=== PATIENT | female | born 1965 | race Caucasian/White ===

== ENCOUNTER 2016-10-24 13:49 | Emergency (ER) | payer OTHER ==
[2016-10-24 13:54] VITALS: RESP 17
[2016-10-24] MEDS ORDERED: ONDANSETRON 4 MG/2 ML VIAL ONE (14:33)
[2016-10-24 14:41] LABS: % IMMATURE GRANULYOCYTES 0.3 % (0.0-1.1); ABSOLUTE IMMATURE GRANULOCYTES 0.02 10^3/uL (0.00-0.10); ADD DIFF? NO; ADD MORPH? NO; ADD SCAN? NO; ATYPICAL LYMPHOCYTE FLAG 20 (0-99); FRAGMENT RBC FLAG 0 (0-99); HEMATOCRIT 41.4 % (38.0-47.0); HEMOGLOBIN 14.4 g/dL (12.6-16.3); LEFT SHIFT FLG 0 (0-99); LIPEMIA HEMOLYSIS FLAG 90 (0-99); MEAN CELL HEMOGLOBIN 30.6 pg (27.9-34.1); MEAN CELL HEMOGLOBIN CONCENTR. 34.8 g/dL (32.4-36.7); MEAN CELL VOLUME 87.9 fL (81.5-99.8); MEAN PLATELET VOLUME 10.5 fL (8.7-11.7); PLATELET CLUMPS FLAG 0 (0-99); PLATELET COUNT 270 10^3/uL (150-400); RED BLOOD CELL COUNT 4.71 10^6/uL (4.18-5.33); RED CELL DISTRIBUTION WIDTH 11.9 % (11.5-15.2)
[2016-10-24 14:48] LABS: ALANINE AMINOTRANSFERASE 43 IU/L (9-52); ALBUMIN 4.6 g/dL (3.5-5.0); ALKALINE PHOSPHATASE 66 IU/L (38-126); ANION GAP 10 mEq/L (8-16); ASPARTATE AMINOTRANSFERASE 26 IU/L (14-46); BILIRUBIN,TOTAL 0.6 mg/dL (0.1-1.4); BILIRUBIN-CONJUGATED 0.3 mg/dL (0.0-0.5); BILIRUBIN-UNCONJUGATED 0.3 mg/dL (0.0-1.1); CALCIUM 9.2 mg/dL (8.5-10.4); CARBON DIOXIDE 25 mEq/l (22-31); CHLORIDE 104 mEq/L (97-110); CREATININE 0.7 mg/dL (0.6-1.0); GLOMERULAR FILTRATION RATE > 60; GLUCOSE 104 mg/dL (70-100); POTASSIUM 3.6 mEq/L (3.5-5.2); SODIUM 139 mEq/L (134-144); TOTAL PROTEIN 7.1 g/dL (6.3-8.2)
[2016-10-24] MEDS ORDERED: ONDANSETRON 4 MG/2 ML VIAL IVP ONE (14:51)
--- NOTE | 2016-10-24 14:51 | EDPHY ---
H & P Stated Complaint: waves of lower abd pain radiating up last few days - Personal History LMP (Females 10-55): Post Menopausal - Medical/Surgical History Hx Asthma: Yes Hx Chronic Respiratory Disease: No Hx Diabetes: No Hx Cardiac Disease: No Hx Renal Disease: No Hx Cirrhosis: No Hx Alcoholism: No Hx HIV/AIDS: No Hx Splenectomy or Spleen Trauma: No Other PMH: "GI issues" - Social History Smoking Status: Never smoked Time Seen by Provider: 10/24/16 14:11 HPI/ROS: CHIEF COMPLAINT: "Waves of abdominal pain" HISTORY OF PRESENT ILLNESS: 50-year-old female self-described history of chronic constipation," chronic GI issues" complaining of 48 hours of intermittent waves of abdominal pain which seemed to start in the lower quadrant progress in a cephalad direction, last few seconds, described as a sharp cramping sensation. Recent bowel movements have been small and hard, "like a butch sausage" . Mild nausea. No vomiting. Last ate pasta for launch which did not cause sequelae. No melena or hematochezia. No urinary abnormality. No fever or chills. No abdominal trauma. No rash. Her primary concern is gallbladder disease. Patient has previously seen [facility] several years ago. She does not have a primary care provider. PRIMARY CARE PROVIDER: none REVIEW OF SYSTEMS: A ten point review of systems was performed and is negative with the exception of the items mentioned in the HPI PAST MEDICAL & SURGICAL HISTORY: Chronic issues with constipation SOCIAL HISTORY: works as a special elementary vocal music teacher PHYSICAL EXAM (Prior to examination, patient consented to physical exam, hands were washed and my usual and customary physical exam procedures followed) 1) GENERAL: Well-developed, well-nourished, alert and oriented. Appears to be in no acute distress. 2) HEAD: Normocephalic, atraumatic 3) HEENT: Pupils equal, round, reactive to light bilaterally. Sclera anicteric. 4) NECK: Full range of motion, no meningeal signs. 5) LUNGS: Clear auscultation bilaterally, no wheezes, no rhonchi, no retractions. 6) HEART: Regular rate and rhythm, no murmur, no heave, no gallop. 7) ABDOMEN: No guarding, no rebound, no focal tenderness, negative McBurney's, negative Farris's, negative Rovsing's, negative peritoneal sign, I am unable to elicit any abdominal pain on exam 8) MUSCULOSKELETAL: Moving all extremities, no focal areas of tenderness, no obvious trauma. No peripheral edema or discoloration. 9) BACK: No CVA tenderness, no midline vertebral tenderness, no fluctuance, no step-off, no obvious trauma, no visual or palpable abnormality. 10) SKIN: No rash, no petechiae. 11) Psychiatric: Patient is oriented X 3, there is no agitation. DIFFERENTIAL DIAGNOSIS: My differential diagnosis includes, but is not limited to, constipation, acute appendicitis, acute cholecystitis, bowel obstruction, acute pancreatitis, ovarian torsion, ectopic , gastritis and urinary tract infection. The patient understands that this diagnosis is provisional and can never be 100% accurate. This is a partial list of diagnoses considered. These considerations are based on history, physical exam, past history and reassessment. (Sanjuanita Freitas) Constitutional: Initial Vital Signs Temperature (C) 36.9 C 10/24/16 13:52 Heart Rate 71 10/24/16 13:52 Respiratory Rate 17 10/24/16 13:52 Blood Pressure 128/80 H 10/24/16 13:52 O2 Sat (%) 95 10/24/16 13:52 O2 Delivery Mode Room Air Allergies/Adverse Reactions: Sulfa (Sulfonamide Antibiotics) Allergy (Verified 10/24/16 13:52) Home Medications: Medication Instructions Recorded Docusate Sodium [Colace] 100 mg PO BID #6 cap 10/24/16 Medical Decision Making ED Course/Re-evaluation: Wojciech was re-evaluated with serial exams most recently at 4:20 p.m. which point she appears comfortable. I re-examined her abdomen which is soft no guarding or rebound, I am unable to elicit any pain including negative McBurney's point pain, negative Farris's sign. I discussed her diagnostic studies. She specifically was concerned about acute cholecystitis. Discussed her ultrasound showing no evidence of acute cholecystitis. Gallbladder polyp is noted. She is also noted to have extensive stool on abdominal x-ray. She notes a history of chronic constipation. Think her symptoms are more than likely secondary to acute on chronic constipation. I think that acute surgical abdominal pathology , acute appendicitis, acute pancreatitis, acute cholecystitis, less likely in this patient at this time. I recommend she follow up with her drum plater at [facility] also recommend she establish primary care and have provided her with these resources and referrals. Usual and customary abdominal precautions instructions provided. She feels comfortable with this plan. All questions and concerns addressed by myself. Care and management in consultation with secondary supervising physician Dr Grey . (Sanjuanita Freitas) Other Provider: The patient wasevaluatedand managed by themnclevel provider. Idiscussed the patient's presentation and course with thephysicianassistantor nurse practitionerand agree with theevaluation. My co-signature indicates that I have reviewed this chart and I agree with the findings and plan of care as documented. I am the secondary supervisingphysician. (Joan Grey) - Data Points Laboratory Results: Laboratory Results 10/24/16 14:25 10/24/16 14:25 Medications Given: Discontinued Medications Sodium Chloride (Ns) 1,000 mls @ 0 mls/hr IV ONCE ONE PRN Reason: Wide Open Stop: 10/24/16 14:53 Last Admin: 10/24/16 14:52 Dose: 1,000 mls Ondansetron HCl (Zofran) 4 mg IVP EDNOW ONE Stop: 10/24/16 14:52 Last Admin: 10/24/16 14:52 Dose: 4 mg Departure - Departure Disposition: Home, Routine, Self-Care Clinical Impression: Abdominal pain, Constipation, Gallbladder polyp Condition: Good Instructions: Constipation (ED), High Fiber Diet (ED), Acute Abdominal Pain (ED ) Additional Instructions: Seek immediate medical attention if you develop new or worsening symptoms, if you develop fevers, chills, inability to tolerate oral intake or any other symptoms that concerns you. Referrals: Nixon Newell MD [Medical Doctor] - 5-7 days, call for appt. Dimitris Barrett DO [Doctor of Osteopathy] - 2-3 days, call for appt. (Dr. Dimtiris Barrett is a primary care provider) Prescriptions: Docusate Sodium [Colace] 100 mg PO BID #6 cap
[2016-10-24 14:52] LABS: COLOR YELLOW; LEUKOCYTE ESTERASE,URINE NEGATIVE (NEGATIVE); NITRITE,URINE NEGATIVE (NEGATIVE)
[2016-10-24] MEDS ORDERED: NS 1,000 ML IV ONE (14:52)
[2016-10-24 15:00] LABS: BACTERIA 1+ /hpf (NONE SEEN); MUCUS TRACE /lpf (NONE-1+)
[2016-10-24 15:06] LABS: RBC,URINE NONE SEEN /hpf (0-3)
[2016-10-24 17:38] VITALS: BP 103/61; PULSE 54; TEMP 98.2; O2SAT 97
== END 2016-10-24 16:56 | disposition home or self-care (01) ==
DX: K82.4 Cholesterolosis of gallbladder (principal); K59.00 Constipation, unspecified; J45.909 Unspecified asthma, uncomplicated
CPT/HCPCS: 96374; J2405

== ENCOUNTER → 2017-02-14 | Outpatient (CLI) | payer OTHER | LOC: FIMAGING 07:51 | PROVIDERS: ATTEND Obstetrics & Gynecology | DX: Z12.31 Encounter for screening mammogram for malignant neoplasm of breast (principal) | CPT/HCPCS: G0202 ==

== ENCOUNTER → 2018-07-22 | Outpatient (CLI) | payer BC | LOC: BMCIMAGING 14:08 | PROVIDERS: ATTEND Family Medicine | DX: R05 Cough (principal); R50.9 Fever, unspecified ==

== ENCOUNTER → 2018-08-10 | Outpatient (CLI) | payer BC | LOC: FIMAGING 13:58 | PROVIDERS: ATTEND Nurse Practitioner Women's Health | DX: Z12.31 Encounter for screening mammogram for malignant neoplasm of breast (principal); N64.4 Mastodynia ==

== ENCOUNTER → 2018-09-28 | Outpatient (CLI) | payer BC | LOC: BMCIMAGING 13:02 | PROVIDERS: ATTEND Family Medicine | DX: R05 Cough (principal) ==